=== PATIENT | male | born 1985 | race Hispanic/Latino ===

== ENCOUNTER 2019-05-13 13:22 | Emergency (ER) | payer SELFPAY ==
[2019-05-13] MEDS ORDERED: DEXAMETHASONE SOD PHOSPHATE 10MG/ML 1ML VIAL ONE (13:39)
[2019-05-13] MEDS ORDERED: KETOROLAC TROMETHAMINE 60 MG/2 ML VIAL ONE (13:40)
[2019-05-13] MEDS ORDERED: ORPHENADRINE CITRATE 30 MG/ML ML ONE (13:40)
== END 2019-05-13 14:49 | disposition home or self-care (01) ==
LOC: EDH 13:22
DX: S33.5XXA Sprain of ligaments of lumbar spine, initial encounter (principal); Z72.0 Tobacco use; X58.XXXA Exposure to other specified factors, initial encounter; Y93.89 Activity, other specified; Y92.89 Other specified places as the place of occurrence of the external cause; Y99.8 Other external cause status
CPT/HCPCS: 96372 ×3; 99284; J1100; J1885; J2360